=== PATIENT | female | born 1990 | race Caucasian/White ===

== ENCOUNTER 2017-07-27 16:43 | Emergency (ER) | payer OTHER ==
[~2017-07-27] VITALS: Ht 154.9 cm; Wt 63.6 kg
[2017-07-27 17:06] VITALS: BP 128/81; PULSE 129; RESP 20; TEMP 98.9; O2SAT 96
[2017-07-27] MEDS ORDERED: VENTAER INH (17:36)
[2017-07-27] MEDS ORDERED: CYMB60CA PO (17:36)
[2017-07-27] MEDS ORDERED: ABIL20TA5 PO (17:36)
[2017-07-27] MEDS ORDERED: ONDANSETRON HCL 4 MG/2 ML VIAL IV PUSH ONE (18:30)
[2017-07-27] MEDS ORDERED: SODIUM CHLOR 0.9% 1000 ML INJ 1,000 ML IV ONE (18:30)
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
[2017-07-27] MEDS ORDERED: LACTATED RINGER'S 1000 ML INJ 1,000 ML IV ONE (19:30)
--- NOTE | 2017-07-27 19:33 | PD ---
Physical Exam Date Seen by Provider: Jul 27, 2017 Time Seen by Provider: 19:31 Narrative GENERAL: This is a well-nourished, well-developed patient, in no apparent distress. Patient appears heavily intoxicated. Speech is very slurred. SKIN: No rashes, ecchymoses or lesions. Warm and dry. HEAD: Atraumatic. Normocephalic. EYES: PERRL, EOMI, no discharge or injection. No scleral icterus. EARS: Clear NOSE: Nasal turbinates appear normal. THROAT: Mucosa pink and moist. Airway patent. NECK: Trachea midline. supple, moves head freely. LUNGS: Clear to auscultation. CV: Regular in rhythm. Mildly tachycardic. ABDOMEN: Soft nontender. EXT: No clubbing cyanosis or edema. Data Data Last Documented VS Vital Signs Date Time Temp Pulse Resp B/P (MAP) Pulse Ox O2 Delivery O2 Flow Rate FiO2 07/27/17 21:35 92 18 120/78 (92) 99 Room Air 07/27/17 17:06 98.9 Orders Orders Sodium Chlor 0.9% 1000 Ml Inj (Ns 1000 M (07/27/17 18:30) Ondansetron Inj (Zofran Inj) (07/27/17 18:30) Complete Blood Count With Diff (07/27/17 18:52) Comprehensive Metabolic Panel (07/27/17 18:52) Drug Screen, Random Urine (07/27/17 19:29) Alcohol (Ethanol) (07/27/17 19:29) Lactated Ringer's 1000 Ml Inj (Lr 1000 M (07/27/17 19:30) Calcium Gluconate Inj (Calcium Gluconate (07/27/17 22:00) Labs Laboratory Tests Test 07/27/17 20:10 White Blood Count 7.4 TH/MM3 Red Blood Count 3.96 MIL/MM3 Hemoglobin 11.8 GM/DL Hematocrit 35.3 % Mean Corpuscular Volume 89.0 FL Mean Corpuscular Hemoglobin 29.9 PG Mean Corpuscular Hemoglobin Concent 33.6 % Red Cell Distribution Width 14.2 % Platelet Count 404 TH/MM3 Mean Platelet Volume 6.4 FL Neutrophils (%) (Auto) 35.8 % Lymphocytes (%) (Auto) 54.1 % Monocytes (%) (Auto) 8.5 % Eosinophils (%) (Auto) 0.6 % Basophils (%) (Auto) 1.0 % Neutrophils # (Auto) 2.7 TH/MM3 Lymphocytes # (Auto) 4.0 TH/MM3 Monocytes # (Auto) 0.6 TH/MM3 Eosinophils # (Auto) 0.0 TH/MM3 Basophils # (Auto) 0.1 TH/MM3 CBC Comment DIFF FINAL Differential Comment Blood Urea Nitrogen 11 MG/DL Creatinine 0.62 MG/DL Random Glucose 84 MG/DL Total Protein 7.4 GM/DL Albumin 3.3 GM/DL Calcium Level 7.4 MG/DL Alkaline Phosphatase 138 U/L Aspartate Amino Transf (AST/SGOT) 28 U/L Alanine Aminotransferase (ALT/SGPT) 35 U/L Total Bilirubin 0.1 MG/DL Sodium Level 145 MEQ/L Potassium Level 3.9 MEQ/L Chloride Level 113 MEQ/L Carbon Dioxide Level 25.6 MEQ/L Anion Gap 6 MEQ/L Estimat Glomerular Filtration Rate 115 ML/MIN Protein Corrected Calcium 7.3 MG/DL Urine Opiates Screen NEG Urine Barbiturates Screen NEG Urine Amphetamines Screen NEG Urine Benzodiazepines Screen NEG Urine Cocaine Screen NEG Urine Cannabinoids Screen POS Ethyl Alcohol Level 293 MG/DL [facility] Medical Record Reviewed: Yes Supervised Visit with YVAN: No Interpretation(s) Laboratory Tests Test 07/27/17 20:10 White Blood Count 7.4 TH/MM3 Red Blood Count 3.96 MIL/MM3 Hemoglobin 11.8 GM/DL Hematocrit 35.3 % Mean Corpuscular Volume 89.0 FL Mean Corpuscular Hemoglobin 29.9 PG Mean Corpuscular Hemoglobin Concent 33.6 % Red Cell Distribution Width 14.2 % Platelet Count 404 TH/MM3 Mean Platelet Volume 6.4 FL Neutrophils (%) (Auto) 35.8 % Lymphocytes (%) (Auto) 54.1 % Monocytes (%) (Auto) 8.5 % Eosinophils (%) (Auto) 0.6 % Basophils (%) (Auto) 1.0 % Neutrophils # (Auto) 2.7 TH/MM3 Lymphocytes # (Auto) 4.0 TH/MM3 Monocytes # (Auto) 0.6 TH/MM3 Eosinophils # (Auto) 0.0 TH/MM3 Basophils # (Auto) 0.1 TH/MM3 CBC Comment DIFF FINAL Differential Comment Blood Urea Nitrogen 11 MG/DL Creatinine 0.62 MG/DL Random Glucose 84 MG/DL Total Protein 7.4 GM/DL Albumin 3.3 GM/DL Calcium Level 7.4 MG/DL Alkaline Phosphatase 138 U/L Aspartate Amino Transf (AST/SGOT) 28 U/L Alanine Aminotransferase (ALT/SGPT) 35 U/L Total Bilirubin 0.1 MG/DL Sodium Level 145 MEQ/L Potassium Level 3.9 MEQ/L Chloride Level 113 MEQ/L Carbon Dioxide Level 25.6 MEQ/L Anion Gap 6 MEQ/L Estimat Glomerular Filtration Rate 115 ML/MIN Protein Corrected Calcium 7.3 MG/DL Urine Opiates Screen NEG Urine Barbiturates Screen NEG Urine Amphetamines Screen NEG Urine Benzodiazepines Screen NEG Urine Cocaine Screen NEG Urine Cannabinoids Screen POS Ethyl Alcohol Level 293 MG/DL Differential Diagnosis Differential diagnoses: Alcohol intoxication, substance abuse, electrolyte abnormality, malingering Narrative Course IV access is obtained. Patient's given a bolus of saline and 1 L bolus of lactated Ringer's. Zofran 4 mg IV. This is a patient who was seen earlier by the daytime nurse practitioner. I was asked to follow-up on the patient. She is a [place] act. There is no evidence of trauma. She's awake and alert but heavily intoxicated. She does not have anyone to come and pick her up and assume her care. The patient will be able to sleep it off here in the ER. Patient's alcohol is 293. Patient's calcium is low at 7.4. Patient given 1 g of calcium gluconate IV. The will be considered medically stable and sober to be discharged at 1 AM. This is alcohol intoxication, substance abuse Diagnosis Primary Impression: alcohol intoxication Additional Impression: substance abuse Patient Instructions: General Instructions Additional Instruction: Rest. Increase fluids. Avoid alcohol. Avoid illegal substances. Follow-up with [facility] for detox. Do not operate a car or any heavy machinery under the influence of alcohol or drugs. Follow-up with a medical doctor this week. Return to the ER for emergencies Med/Other Pt SpecificInfo: No Meds Exist/No RX given Disposition: 01 DISCHARGE HOME Condition: Stable Osman Bartlett Jul 27, 2017 19:32
[2017-07-27 20:42] LABS: AUTOMATED NEUTROPHIL # 2.7 TH/MM3 (1.8-7.7); BASOPHIL # 0.1 TH/MM3 (0-0.2); EOSINOPHIL % 0.6 % (0.0-4.0); HEMATOCRIT 35.3 % (35.0-46.0); HEMOGLOBIN 11.8 GM/DL (11.6-15.3); LYMPH % 54.1 % (9.0-44.0); MEAN CORPUSCULAR HEMOGLOBIN 29.9 PG (27.0-34.0); MEAN CORPUSCULAR HGB CONC 33.6 % (32.0-36.0); MEAN PLATELET VOLUME 6.4 FL (7.0-11.0); MONO % 8.5 % (0.0-8.0); MONOCYTE # 0.6 TH/MM3 (0-0.9); NEUT % 35.8 % (16.0-70.0); PLATELET COUNT 404 TH/MM3 (150-450); RED BLOOD COUNT 3.96 MIL/MM3 (4.00-5.30); RED CELL DISTRIBUTION WIDTH 14.2 % (11.6-17.2); WHITE BLOOD COUNT 7.4 TH/MM3 (4.0-11.0)
[2017-07-27 21:10] LABS: ALBUMIN 3.3 GM/DL (3.4-5.0); BICARBONATE 25.6 MEQ/L (21.0-32.0); CALCIUM 7.4 MG/DL (8.5-10.1); CREATININE 0.62 MG/DL (0.50-1.00); TOTAL BILIRUBIN ADULT 0.1 MG/DL (0.2-1.0); TOTAL PROTEIN 7.4 GM/DL (6.4-8.2)
[2017-07-27 21:16] LABS: CALCIUM-PROTEIN CORRECTED 7.3 MG/DL (8.5-10.1)
[2017-07-27 21:35] VITALS: BP 120/78; PULSE 92; RESP 18; O2SAT 99
[2017-07-27] MEDS ORDERED: CALCIUM GLUCONATE INJ 1 GM in SODIUM CHLORIDE 0.9% INJ 100 ML IV ONE (22:00)
== END 2017-07-28 01:04 | disposition home or self-care (01) ==
LOC: NEPD 16:43
DX: F10.129 Alcohol abuse with intoxication, unspecified (principal); F12.90 Cannabis use, unspecified, uncomplicated; R00.0 Tachycardia, unspecified; J45.909 Unspecified asthma, uncomplicated; F17.200 Nicotine dependence, unspecified, uncomplicated
CPT/HCPCS: 80053; 80307; 85025; 96361; 96374; 96375; 99284; J0610; J2405; J7030; J7120